=== PATIENT | female | born 1965 | race Caucasian/White ===

== ENCOUNTER → 2018-11-22 15:21 | Outpatient (CLI) | payer BC ==
--- NOTE | 2018-11-29 14:03 | ST ---
PATIENT:JIMMIE SHAHID MEDICAL RECORD: [id number] SEX: F LOCATION:[facility] ORDER #: ADMISSION DATE: 11/22/18 AGE OF PATIENT: 53 REFERRING PHYSICIAN: INTERPRETING PHYSICIAN: ANDRESSA GALINDO MD DATE OF SERVICE: 11/22/2018 Baseline ECG is normal. Exercised for 7 minutes and 21 seconds on Keanu protocol. Maximum heart rate 151 beats per minute, greater than 85% max predicted. No ECG changes of ischemia. No symptoms of ischemia. Normal blood pressure response to exercise. No arrhythmias noted. Good exercise tolerance for age. TRANSINT:[id number] Voice Confirmation ID: [id number] DOCUMENT ID: [id number] ANDRESSA GALINDO MD at 1403 CC: [id number] DICTATION DATE: 11/28/18 1259 COMPUTER SYSTEMS INFORMATION DIRECTOR: 11/28/18 1308 DEP CLI 11/22/[address] [id number]
== END | disposition home or self-care (01) ==
LOC: D.HCCARDIO 15:21
PROVIDERS: ATTEND Internal Medicine Interventional Cardiology
DX: R06.09 Other forms of dyspnea (principal)

== ENCOUNTER → 2018-11-28 09:25 | Outpatient (CLI) | payer BC ==
--- NOTE | 2018-11-29 14:03 | EC ---
PATIENT:JIMMIE SHAHID DATE OF SERVICE: 11/28/18 SEX: F MEDICAL RECORD: [id number] DATE OF : 63 LOCATION:[facility] AGE OF PATIENT: 53 ADMISSION DATE: 11/28/18 REFERRING PHYSICIAN: INTERPRETING PHYSICIAN: ANDRESSA GALINDO MD ECHOCARDIOGRAM REPORT ECHO CHARGES 4 ECHO COMPLETE Date: 11/28/18 CLINICAL DIAGNOSIS: MURMUR ECHOCARDIOGRAPHIC MEASUREMENTS (adult normal given) AC root (d.<3.7cm) 2.8 cm LV Septum d (<1.2 cm> 1.4 cm Valve Excursion 1.3 cm LV Septum (systole) 1.6 cm Left Atria (s.<4.0cm> 3.8 cm LVPW d(<1.2cm) 1.2 cm RV (d.<2.3cm) 3.7 cm LVPW (sytole) 1.7 cm LV diastole(<5.6CM) 4.7 cm MV E-F(>70mm/sec) cm LV systole 2.7 cm LVOT Diameter 1.7 cm MV exc.(>10mm) 1.1 cm Est.ejection fraction (50-75%) % DOPPLER: LVIT cm/sec A 58.0 cm/sec E 89.0 cm/sec LA cm/sec RVSP 21 mmHg LVOT 101 cm/sec AOP1/2T m/s Asc. Ao 162 cm/sec RVOT 79 cm/sec RA cm/sec PA 110 cm/sec AV Gradient Peak 10.48mmHg AV Mean 6.10 mmHg AV Area 1.6 cm MV Gradient Peak 4.09 mmHg MV Mean 1.01 mmHg MV Area cm COMMENTS: Secretary To Board Of Commissioners: 2 SHARI ANGLIN Chief Cook: 3 Dr. Duran TAPE# PACS Pericardial Effusion N DATE OF SERVICE: Adequate 2D, color flow, spectral Doppler, and M-Mode. LVH is present. LV internal dimensions are normal. Wall motion is normal. EF is greater than or equal to 55%. Aortic valve is tricuspid. No evidence of stenosis by Doppler interrogation. The left atrium is normal. Mitral valve shows no prolapse. Trace MR. Right-sided chambers grossly normal. Trace TR. TRANSINT:[id number] Voice Confirmation ID: [id number] DOCUMENT ID: [id number] ECHOCARDIOGRAM REPORT [id number] SHAHID,PEPPER LIBANDRESSA PANIAGUA MD at 1403 CC: [id number] DICTATION DATE: 11/28/18 1259 SERVICE CENTER TECHNICIAN: 11/28/18 1310 DEP CLI 11/28/18 [facility] [address] [place] [address]
== END | disposition home or self-care (01) ==
LOC: D.HCCARDIO 11-24 13:30
PROVIDERS: ATTEND Internal Medicine Interventional Cardiology
DX: R01.1 Cardiac murmur, unspecified (principal)